=== PATIENT | female | born 1955 | race Caucasian/White ===

== ENCOUNTER → 2021-11-30 | Day surgery (SDC) | payer MEDICARE ==
[~2021-11-30] MED LIST: ACETAMINOPHEN/CODEINE 300MG - 30MG TAB ONE; B COMPLEX1 EACH; CALCIUM; DEXAMETHASONE SOD PHOS INJ 4 MG/ML SDV ONE; FENTANYL CITRATE/PF 100MCG/2 ML INJ ONE; LIDOCAINE 1% W/EPINEPHRINE 20 ML VIAL ONE; LIDOCAINE HCL 2% LOCAL INJ 5 ML SDV VIAL INJ ONE; MIDAZOLAM HCL 2 MG/2 ML VIAL ONE; ONDANSETRON HCL INJ 2MG/ML 2ML 2 MG/ML VIAL ONE; OXYMETAZOLINE HCL 0.05% NAS 1 SPRAY BTL ONE; POVIDONE IODINE 0.05% 0.05 % ML PO ONE; PROPOFOL IV EMULSION 10 MG/ML 20 ML VIAL ONE; ROCURONIUM BROMIDE 10 MG/ML 5ML VIAL IV ONE; SEVOFLURANE INHAL SOLN 250 ML PEN BTL ONE; SUGAMMADEX SODIUM 200 MG/2 ML VIAL IV ONE
[2021-11-30 09:35] VITALS: BP 139/81
== END | disposition home or self-care (01) ==
LOC: OR 05:29
PROVIDERS: ATTEND Otolaryngology Otolaryngology/Facial Plastic Surgery
DX: K14.8 Other diseases of tongue (principal); R01.1 Cardiac murmur, unspecified; Z85.3 Personal history of malignant neoplasm of breast
CPT/HCPCS: 31525; 31622; 41114; 43191; 87071; 87075; 87102; 87205; 87206; 88305; 93005; J1100; J2001; J2250; J2405; J2704; J3010; 88304